=== PATIENT | male | born 1980 | race Caucasian/White ===

== ENCOUNTER 2024-11-25 15:38 | Emergency (ER) | payer BC ==
[~2024-11-25] VITALS: Ht 185.4 cm; Wt 90.7 kg
== END 2024-11-25 17:17 | disposition home or self-care (01) ==
LOC: ED 15:38
DX: S93.402A Sprain of unspecified ligament of left ankle, initial encounter (principal); X58.XXXA Exposure to other specified factors, initial encounter; Y93.73 Activity, racquet and hand sports; Y92.89 Other specified places as the place of occurrence of the external cause; Y99.8 Other external cause status